=== PATIENT | female | born 1995 | race Hispanic/Latino ===

== ENCOUNTER 2020-12-06 15:45 | Inpatient (IN) | payer BC ==
[~2020-12-06] VITALS: Ht 175.3 cm; Wt 86.6 kg
[2020-12-06 15:46] VITALS: BP 134/78
[2020-12-06 16:49] LABS: HEMATOCRIT 38.9 % (36-48); MEAN CORPUSCULAR HEMOGLOBIN 32.8 pg (27.0-33.0); MEAN CORPUSCULAR HGB CONC 34.2 g/dL (32.0-36.0); MEAN CORPUSCULAR VOLUME 95.8 fL (79-99); RED BLOOD CELL COUNT(AUTO) 4.06 MIL/uL (4.00-5.50); RED CELL DISTRIBUTION WIDTH 13.4 % (11.0-15.5); WHITE BLOOD COUNT (AUTO) 10.3 K/uL (4.8-10.8)
[2020-12-06] MEDS ORDERED: EPHEDRINE SULFATE 50 MG/ML AMPULE IVP PRN (17:00)
[2020-12-06] MEDS ORDERED: LACTATED RINGERS 500 ML 500 ML IV PRN (17:00)
[2020-12-06] MEDS ORDERED: NALOXONE HCL 0.4 MG/1 ML ML IV PRN (17:00)
[2020-12-06] MEDS ORDERED: OXYTOCIN-LR 20 UNITS/1000 ML 1,000 ML IV SCH (17:00)
[2020-12-06] MEDS ORDERED: ROPIVACAINE 0.2% 100ML VIAL 100 ML EP SCH (17:00)
[2020-12-06] MEDS ORDERED: AMPICILLIN 2GM+NS 100ML 100 ML IV SCH (17:00)
[2020-12-06] MEDS ORDERED: LACTATED RINGERS 1000ML 1,000 ML IV PRN (17:00)
[2020-12-06] MEDS ORDERED: PROMETHAZINE HCL 25 MG/ML 1ML AMPULE IM ONE (17:00)
[2020-12-06] MEDS ORDERED: MEPERIDINE-PF 50 MG/ML SYG IVP ONE (17:00)
[2020-12-06] MEDS ORDERED: AMPICILLIN 1GM+NS 50ML 50 ML IV SCH (21:00)
[2020-12-07] MEDS ORDERED: MEPERIDINE-PF 25 MG/ML SYG ONE (04:18)
[2020-12-07] MEDS ORDERED: ONDANSETRON 4MG INJ ONE (04:19)
[2020-12-07] MEDS ORDERED: LIDOCAINE HCL 1% 20 ML VIAL ONE (04:28)
[2020-12-07] MEDS ORDERED: OXYTOCIN 10 USP UNITS/ML ONE ×2 (04:29→06:32)
[2020-12-07] MEDS ORDERED: MEPERIDINE-PF 25 MG/ML SYG IVP ONE (04:30)
[2020-12-07] MEDS ORDERED: ONDANSETRON 4MG INJ IVP ONE (04:30)
[2020-12-07] MEDS ORDERED: CEFAZOLIN SODIUM 1 GM VIAL ONE (05:27)
[2020-12-07] MEDS ORDERED: MISOPROSTOL 200 MCG TABLET PR SCH (05:30)
[2020-12-07] MEDS ORDERED: MEPERIDINE-PF 50 MG/ML SYG ONE (05:31)
[2020-12-07] MEDS ORDERED: MISOPROSTOL 200 MCG TABLET ONE (05:34)
[2020-12-07] MEDS ORDERED: MEPERIDINE-PF 25 MG/ML SYG IVP SCH (05:35)
[2020-12-07] MEDS ORDERED: CEFAZOLIN SODIUM 1 GM VIAL IVP PRN (05:35)
[2020-12-07] MEDS ORDERED: BENZOCAINE/LANOLIN/ALOE VERA 60 ML AEROSOL TP PRN (08:00)
[2020-12-07] MEDS ORDERED: OXYTOCIN-LR 20 UNITS/1000 ML 1,000 ML IV SCH (08:00)
[2020-12-07] MEDS ORDERED: LANOLIN 30GM OINTMENT TP PRN (08:00)
[2020-12-07] MEDS ORDERED: ACETAMINOPHEN WITH CODEINE 1 TAB TAB PO PRN (08:00)
[2020-12-07] MEDS ORDERED: ACETAMINOPHEN 325 MG TAB PO PRN (08:00)
[2020-12-07] MEDS ORDERED: WITCH HAZEL 1 PAD TP PRN (08:00)
[2020-12-07] MEDS ORDERED: MEASLES/MUMPS/RUBELLA VACCINE, LIVE 0.5 ML/VIAL SQ PRN (08:00)
[2020-12-07] MEDS ORDERED: DIPH,PERTUSS(ACELL),TET VAC/PF 0.5 ML VIAL IM PRN (08:00)
[2020-12-07] MEDS: DOCUSATE SODIUM 100 MG CAP PO SCH (09:00)
[2020-12-07 09:01] VITALS: BP 115/61
[2020-12-07] MEDS ORDERED: PREN-196 PO (09:42)
[2020-12-07 09:43] LABS: RAPID PLASMA REAGIN NONREACTIVE (NONREACTIVE)
[2020-12-07 11:13] VITALS: BP 97/64
[2020-12-07] MEDS: IBUPROFEN 600 MG TABLET PO PRN ×2 (11:29→17:12)
[2020-12-07 15:55] VITALS: BP 108/58
[2020-12-07 19:33] VITALS: BP 99/65
[2020-12-07 22:42] VITALS: BP 92/51
[2020-12-08 02:35] VITALS: BP 103/81
[2020-12-08 06:28] LABS: HEMATOCRIT 33.6 % (36-48); MEAN CORPUSCULAR HEMOGLOBIN 31.9 pg (27.0-33.0); MEAN CORPUSCULAR HGB CONC 33.6 g/dL (32.0-36.0); MEAN CORPUSCULAR VOLUME 94.9 fL (79-99); RED BLOOD CELL COUNT(AUTO) 3.54 MIL/uL (4.00-5.50); RED CELL DISTRIBUTION WIDTH 13.5 % (11.0-15.5); WHITE BLOOD COUNT (AUTO) 13.2 K/uL (4.8-10.8)
[2020-12-08 07:28] VITALS: BP 104/60
[2020-12-08] MEDS: IBUPROFEN 600 MG TABLET PO PRN (08:03)
[2020-12-08] MEDS: DOCUSATE SODIUM 100 MG CAP PO SCH (08:08)
[2020-12-08 11:19] VITALS: BP 121/75
[2020-12-08 17:09] LABS: HEPATITIS Bs ANTIGEN SCREEN P Negative (Negative)
== END 2020-12-08 15:50 | disposition home or self-care (01) | DRG 807 ==
LOC: EDH 15:45 → LDH 15:46 → WSH 12-07 09:04
PROVIDERS: ADMIT Internal Medicine; ATTEND Internal Medicine
PROC: 10E0XZZ Delivery of Products of Conception, External Approach (ICD-10-PCS; principal; 2020-12-06)
PROC: 0KQM0ZZ Repair Perineum Muscle, Open Approach (ICD-10-PCS; 2020-12-06)
PROC: 3E0R3BZ Introduction of Anesthetic Agent into Spinal Canal, Percutaneous Approach (ICD-10-PCS; 2020-12-06)
PROC: 00HU33Z Insertion of Infusion Device into Spinal Canal, Percutaneous Approach (ICD-10-PCS; 2020-12-06)
DX: O42.913 Preterm premature rupture of membranes, unspecified as to length of time between rupture and onset of labor, third trimester (principal); Z37.0 Single live birth; O70.1 Second degree perineal laceration during delivery; Z3A.36 36 weeks gestation of pregnancy; Z67.11 Type A blood, Rh negative
CPT/HCPCS: 36415; 76805; 82120; 83033; 85027; 86592; 86701; 86850; 86900; 86901; 87340; 87390; A4314; G0378; J0690; J2175; J2405; J2590; J2795; J7120